=== PATIENT | female | born 1995 | race Caucasian/White ===

== ENCOUNTER 2017-11-10 17:00 | Inpatient (IN) | payer BC ==
[2017-11-10] MEDS ORDERED: Lactated Ringer's 1,000 ML IV SCH (18:15)
[2017-11-10 18:39] LABS: BASO # 0.1 K/uL (0.0-0.2); BASO % 1.2 % (0.0-2.0); EOS % 0.3 % (0.0-4.0); HEMOGLOBIN 12.6 g/dL (11.0-16.0); LYMPH # 2.2 K/uL (1.0-4.3); LYMPH % 19.5 % (20.0-40.0); MEAN CELL VOLUME 79.6 fL (81.0-99.0); MEAN CORPUSCULAR HEMOGLOBIN 27.2 pg (27.0-31.0); MEAN CORPUSCULAR HGB CONC 34.2 g/dL (33.0-37.0); MEAN PLATELET VOLUME 9.7 fL (7.2-11.7); MONO # 0.9 K/uL (0.0-0.8); MONO % 8.1 % (0.0-10.0); NEUT % 70.9 % (50.0-75.0); NRBC % 0.3 % (0.0-2.0); RBC 4.64 Mil/uL (3.80-5.20); RED CELL DISTRIBUTION WIDTH 20.5 % (11.5-14.5); WHITE BLOOD COUNT 11.3 K/uL (4.8-10.8)
[2017-11-10 18:45] LABS: SQUAMOUS EPITHIAL < 1 /hpf (0-5); URINE BACTERIA MOD (<OCC); URINE BILIRUBIN NEGATIVE (NEGATIVE); URINE BLOOD 1+ (NEGATIVE); URINE CLARITY Clear (Clear); URINE COLOR Straw (YELLOW); URINE GLUCOSE (UA) NORMAL (Normal); URINE LEUKOCYTE ESTERASE NEG Leu/uL (Negative); URINE PROTEIN NEGATIVE (NEGATIVE); URINE UROBILINOGEN NORMAL mg/dL (0.2-1.0)
[2017-11-10 18:49] LABS: BLOOD UREA NITROGEN 4 mg/dL (7-17); CALCIUM 9.4 mg/dl (8.6-10.4); GFR NON-AFRICAN AMERICAN > 60
[2017-11-10 18:53] LABS: ALB/GLOB RATIO 1.2 (1.0-2.1); ALBUMIN 4.2 g/dL (3.5-5.0); ALT/SGPT 35 U/L (9-52); AST/SGOT 92 U/L (14-36)
[2017-11-10 19:20] LABS: HEPATITIS B SURFACE AG Negative (NEGATIVE)
--- NOTE | 2017-11-10 20:42 | OBHP ---
Datetime: 11/10/2017 20:17 IP Adm Impression: Term, intrauterine ; No Active Labor; Intact Membranes IP Admit Plan: Admit to unit IP Admit Plan Other: Conservative management Admit Comment, IP Provider: This is a private patient of Dr. Lyon Patient seen and evaluated at approximately 1750 hours 22 y.o. , LMP unsure, TANISHA 12/01/17, EGA 37 weeks, c/o Ctx since 1515 hours, pain scale /10 t o 08/18. Reports decreased FM since 1200 hours. Had visit today: examined by PMD approx 1300 hours - told to be 2 cm. Denies LOF, VB. care: Dr. Lyon. Noted for marginal insertion of placenta. Anemia P Ob: primip P BOOKY: 16 x monthly x 6. Denies h/o STIs, myomata, ovarian cysts. abnormal Pap PMH: denies PSH: denies NKDA Meds: PNV, folic acid, iron - each, QD Soc Hx: denies tobacco, illicit drug or EtOH use. x 5 years. Unemployed. Fam Hx: Mother alive 45 y.o. - HTN. Father earlier this year, age 55 - [place]. Denies fam h/o cancer P.E.: as above. Mildly obese, in NAD. Anxious. Awake, alert, oriented to time, person and place. P leasant and cooerative. Assessment: 22 y.o. P0, 37 weeks, advanced cervical dilatation. Category 1 tracing. GBS (-). Clini yojana stable. Plan: 1) Admit 2) NPO 3) Admission labs. 4) Continuous EFM 5) Epidural, upon request 6) Conservative management 7) Anticpate vaginal delivery - as per, adn D/W, Dr. Lyon Pelvic Type - PN: Adequate Extremities - PN: Normal Abdomen - PN: Normal Back - PN: Normal Breast - PN: Not Done Lungs - PN: Normal Heart - PN: Normal Thyroid - PN: Normal Neurologic - PN: Normal HEENT - PN: Normal General - PN: Normal Weight - Estimated: 6 1/2lb Presentation-Admit: Vertex FHR - Baseline A Provider: 155 Comments, ACOG Physical Exam: Abdomen: Gravid. Soft. Fundal height 37cm All other systems reviewed and are negative Gestation - Est Wks by US: 37.0 EGA AdmitDate IP: 37.0 Vital Signs Provider: Reviewed; Within Normal Limits IP Indication for Induction: Not Applicable IP Chief Complaint: Uterine contractions NICHD Variability Prov Fetus A: Moderate 6-25bpm NICHD Accel Fetus A IP Provider: [id number] FHR Category Provider Fetus A: Category I NICHD Decel Fetus A IP Provider: None Dilatation, Provider: 4 Effacement, Provider: 50 Station, Provider: -3 Genitourinary Exam: Normal DTRs - PN: Not Done
[2017-11-10] MEDS ORDERED: Nalbuphine HCL 10 mg/ml Ampule IVP ONE (21:14)
[2017-11-10] MEDS ORDERED: Bupivacaine HCl/FentaNYL Cit 100 ML EPI ONE (23:35)
[2017-11-11] MEDS ORDERED: Oxytocin 30 UNIT 30 UNITS/500 ML BAG IV ONE (01:42)
[2017-11-11] MEDS ORDERED: Oxytocin 30 UNIT 30 UNITS/500 ML BAG IV SCH (02:00)
[2017-11-11] MEDS ORDERED: Lidocaine 2% MPF (5 ml) Inj ONE (02:54)
[2017-11-11] MEDS ORDERED: Bupivacaine HCl/FentaNYL Cit 100 ML EPI ONE (05:46)
--- NOTE | 2017-11-11 06:53 | OBPN ---
Datetime: 11/11/2017 06:46 IP Progress Impression: Normal progression of labor IP Procedures: Sterile Vag Exam Contraction Comments Provider: irrg FHR - Baseline A Provider: 150 IP Progress Note Comment: pt was seen at bed side ve 9/-1 cnt pitocin anticipate Vital Signs Provider: Reviewed; Within Normal Limits NICHD Accel Fetus A IP Provider: 15X15 FHR Category Provider Fetus A: Category I NICHD Variability Prov Fetus A: Moderate 6-25bpm Dilatation, Provider: 9 Effacement, Provider: 100 Station, Provider: -1 Datetime: 11/10/2017 20:17 Gestation - Est Wks by US: 37.0 Weight - Estimated: 6 1/2lb Presentation-Admit: Vertex NICHD Decel Fetus A IP Provider: None
[2017-11-11] MEDS ORDERED: Benzocaine/Menthol 20%-0.5% Topical Spray (60 ml) TOP PRN (09:16)
[2017-11-11] MEDS ORDERED: Oxycodone/Acetaminophen 5/325 mg Tab PO PRN ×2 (09:16)
--- NOTE | 2017-11-11 09:30 | OBDS ---
DELIVERY PERSONNEL Delivery Doctor: Rangel Lyon MD Drop Wire Hanger: Jonathan Dennis RN Anesthesiologist: kia MATERNAL INFORMATION Delivery Anesthesia: Epidural Medications in Delivery: pitocin 20 Estimated Blood Loss (ml): 300 Placenta Cultured: No Maternal Complications: None Provider Comments: baby deliverdd in [facility]. end clean 9/9 no com LABOR SUMMARY EDC: 12/01/2017 00:00 No. Babies in Womb: 1 Attempted: No Labor Anesthesia: Epidural LABOR INFORMATION Onset of Labor: 11/10/2017 15:30 Complete Dilatation: 11/11/2017 08:48 Oxytocin: Augmentation Group B Beta Strep: Negative Steroids Given: None MEMBRANES Membranes Rupture Method: Spontaneous Rupture of Membranes: 11/11/2017 02:00 Length of Rupture (hrs): 6.98 Amniotic Fluid Color: Clear Amniotic Fluid Amount: Moderate Amniotic Fluid Odor: Normal STAGES OF LABOR Stage 1 hrs: 17 Stage 1 min: 18 Stage 2 hrs: 0 Stage 2 min: 11 Stage 3 hrs: 0 Stage 3 min: 1 Total Time in Labor hrs: 17 Total Time in Labor min: 30 VAGINAL DELIVERY Episiotomy: None Laceration Extension: First Degree Laceration Type: None Laceration Repair Note: reapaired with 2 hromic Initial Vag Sponge Count: 10 Final Vag Sponge Count: 10 Initial Vag Sharps Count: 2 Final Vag Sharps Count: 2 Sponge Count Correct: Yes Sharps Count Correct: Yes BABY A INFORMATION Delivery Date/Time: 11/11/2017 08:59 Method of Delivery: Vaginal Born in Route : No : N/A Forceps: N/A Vacuum Extraction: N/A Shoulder Dystocia : No SHOULDER DYSTOCIA BABY A Delivery Date/Time: 11/11/2017 08:59 PRESENTATION/POSITION BABY A Presentation: Cephalic Cephalic Presentation: Vertex Vertex Position: Left Occipital Anterior Breech Presentation: N/A PLACENTA INFORMATION BABY A Placenta Delivery Time : 11/11/2017 09:00 Placenta Method of Delivery: Expressed Placenta Status: Delivered SCORES BABY A Heart Rate 1 min: >100 bpm Resp Effort 1 min: Good Cry Reflex Irritability 1 min: Cough or Sneeze or Pulls Away Muscle Tone 1 min: Active Motion Color 1 min: Body [place], Extremities Blue Resuscitation Effort 1 min: Tactile Stimulation SCORE 1 MIN: 9 Heart Rate 5 min: >100 bpm Resp Effort 5 min: Good Cry Reflex Irritability 5 min: Cough or Sneeze or Pulls Away Muscle Tone 5 min: Active Motion Color 5 min: Body [place], Extremities Blue SCORE 5 MIN: 9 INFANT INFORMATION BABY A Gestational Age at Delivery: 37.0 Gestational Status: Term Infant Outcome : Liveborn Condition : Stable Infant Sex: Male IDENTIFICATION/MEDS BABY A ID Band Number: [id number] ID Band Location: Left Leg; Left Arm Sensor Applied: Yes Sensor Number: [id number] Sensor Location : Cord Clamp WEIGHT/LENGTH BABY A Infant Birthweight (gms): 2925 Weight (lb): 6 Weight (oz): 7 Length Inches: 19.00 Infant Length cms: 48.3 CORD INFORMATION BABY A Nuchal Cord : N/A Cord Blood Taken: Yes Infant Suction: Mouth; Nose ASSESSMENT BABY A Complications: None Physical Findings at Delivery: Within Normal Limits Separator Tender/ALS Called : No Care By: dr charles Transferred To: Remains with Mother
--- NOTE | 2017-11-12 06:38 | OBPPN ---
Datetime: 11/12/2017 06:37 PP Pain Prov: Within normal limits PP Nausea Prov: Denies PP Flatus Prov: Yes PP Impression Prov: Normal progression PP Plan Prov: Continue present management PP Progress Note Prov: pt was seen at bed side, pain under control,no n/v, tolerating deit, voiding, min lochia, flatus+ ppd#1 cont marciano ma encourage a cont pop care Vital Signs Provider PP: Reviewed; Within Normal Limits
[2017-11-12 07:34] LABS: BASO # 0.1 K/uL (0.0-0.2); BASO % 0.9 % (0.0-2.0); EOS # 0.1 K/uL (0.0-0.7); EOS % 0.9 % (0.0-4.0); LYMPH # 3.8 K/uL (1.0-4.3); LYMPH % 28.6 % (20.0-40.0); MEAN CELL VOLUME 80.8 fL (81.0-99.0); MEAN CORPUSCULAR HEMOGLOBIN 27.2 pg (27.0-31.0); MEAN CORPUSCULAR HGB CONC 33.6 g/dL (33.0-37.0); MONO % 7.8 % (0.0-10.0); NEUT # 8.2 K/uL (1.8-7.0); NEUT % 61.8 % (50.0-75.0); NRBC % 0.1 % (0.0-2.0); RBC 4.41 Mil/uL (3.80-5.20); RED CELL DISTRIBUTION WIDTH 20.7 % (11.5-14.5); WHITE BLOOD COUNT 13.3 K/uL (4.8-10.8)
[2017-11-12 16:08] VITALS: RESP 18
[2017-11-12 16:12] VITALS: O2SAT 100
--- NOTE | 2017-11-13 08:13 | OBPPN ---
Datetime: 11/13/2017 07:46 PP Pain Prov: Within normal limits PP Nausea Prov: Denies PP Flatus Prov: Yes PP BM Prov: No PP Breasts Prov: Normal PP Heart Prov: Normal PP Lungs Prov: Normal PP Abdomen/Uterus Prov: Normal PP Lochia Prov: Normal PP Vulva/Perineum Prov: Normal PP CVA Tenderness Prov: Normal PP Extremities Prov: Normal PP Comments Phys Exam Prov: Fundus minimally tender at the level of umbilicus, Bowel sounds x4 prese nt. PP Impression Prov: Normal progression PP Plan Prov: Discharge PP Progress Note Prov: Patient seen and examined at bedside. She states her lochia is minimal. Danielle zeng states her pain is 2-3 out of 10, well controlled with Motrin. She has been breast feeding exclu sively. She states she has been eating well, with no nausea or vomiting. Assessment: 22 year old female who is status post on 11/11/17, pain currently well controlled, tolera ting diet without issues, passing flatus. Plan: Encourage water intake Continue taking Iron pills Continue taking vitamins for 4-6 months. Take Motrin for pain. Follow up with Dr. Lyon in 6 weeks Complete vaginal rest for 6 weeks - no intercourse, no tampons, no douche. IP PP Procedures: None Vital Signs Provider PP: Reviewed; Within Normal Limits
--- NOTE | 2017-11-13 12:08 | OBDCSUM ---
Datetime: 11/13/2017 12:05 Discharged to, Provider: Home Follow up at, Provider: Dr. Lyon Disch Instr Activity: Normal activity; May be up to bathroom; May Shower Disch Instr Diet: Regular Discharge Instructions, Provider: Routine instructions given Discharge Diagnosis, Provider: Term Delivered Discharge Time: 11/13/2017 12:05 Follow up in weeks, Provider: 6 weeks Contraception discussed, Prov: Yes Disch Activity Restrictions: No exercising; No lifting; No sexual activity; Nothing in vagina - Inte rcourse, tampons, douche Contraception after Delivery: Undecided
[2017-11-13] MEDS ORDERED: Influenza Vaccine 60 MCG/0.5 ML SYR (3 yr & up) IM ONE (15:00)
[2017-11-14 00:19] VITALS: BP 115/74; PULSE 79; TEMP 97.8
== END 2017-11-13 16:30 | disposition home or self-care (01) | DRG 807 ==
LOC: C.EROB 17:00 → C.4D 18:19 → C.4M 11-11 10:38
PROVIDERS: ADMIT Obstetrics & Gynecology; ATTEND Obstetrics & Gynecology
PROC: 0HQ9XZZ Repair Perineum Skin, External Approach (ICD-10-PCS; principal; 2017-11-11)
PROC: 10E0XZZ Delivery of Products of Conception, External Approach (ICD-10-PCS; 2017-11-11)
DX: O36.8190 Decreased fetal movements, unspecified trimester, not applicable or unspecified (principal); O99.02 Anemia complicating childbirth; O70.0 First degree perineal laceration during delivery; Z37.0 Single live birth